=== PATIENT | female | born 2000 | race Two or more races ===

== ENCOUNTER 2019-04-26 14:00 | Inpatient (IN) | payer OTHER ==
[~2019-04-26] VITALS: Ht 154.9 cm; Wt 84.4 kg
[2019-05-01] MEDS ORDERED: PRENATABS RX T1 EACH PO (09:53)
== END 2019-05-04 11:48 | disposition home or self-care (01) | DRG 788 ==
LOC: LDR 05-01 09:49 → OB/GYN 05-02 00:20
PROVIDERS: ADMIT Specialist
PROC: 3E0P7VZ Introduction of Hormone into Female Reproductive, Via Natural or Artificial Opening (ICD-10-PCS; 2019-05-01)
PROC: 3E033VJ Introduction of Other Hormone into Peripheral Vein, Percutaneous Approach (ICD-10-PCS; 2019-05-01)
PROC: 4A1HXCZ Monitoring of Products of Conception, Cardiac Rate, External Approach (ICD-10-PCS; 2019-05-01)
PROC: 10D00Z1 Extraction of Products of Conception, Low, Open Approach (ICD-10-PCS; principal; 2019-05-01 21:00)
DX: O82 Encounter for cesarean delivery without indication (principal); O65.4 Obstructed labor due to fetopelvic disproportion, unspecified; Z3A.39 39 weeks gestation of pregnancy; Z37.0 Single live birth

== ENCOUNTER 2020-05-15 18:21 | Emergency (ER) | payer OTHER ==
[~2020-05-15] VITALS: Ht 162.6 cm; Wt 79.4 kg
[~2020-05-15 18:21] MED LIST: PRENATABS RX T1 EACH PO
== END 2020-05-15 22:08 | disposition home or self-care (01) ==
LOC: ER 18:21
DX: J32.0 Chronic maxillary sinusitis (principal); Z03.818 Encounter for observation for suspected exposure to other biological agents ruled out

== ENCOUNTER 2021-03-21 11:58 | Emergency (ER) | payer OTHER ==
[~2021-03-21] VITALS: Ht 154.9 cm; Wt 72.6 kg
== END 2021-03-21 17:23 ==
LOC: ER 11:58
DX: S93.401A Sprain of unspecified ligament of right ankle, initial encounter (principal); V43.62XA Car passenger injured in collision with other type car in traffic accident, initial encounter; Y92.410 Unspecified street and highway as the place of occurrence of the external cause; E11.9 Type 2 diabetes mellitus without complications; I10 Essential (primary) hypertension

== ENCOUNTER 2021-05-30 02:59 | Emergency (ER) | payer OTHER ==
[~2021-05-30] VITALS: Ht 167.6 cm; Wt 72.6 kg
[2021-05-30] MEDS ORDERED: PEPCID20 MG PO (06:32)
[2021-05-30] MEDS ORDERED: ONDANSETRON HCL4 MG PO (07:03)
== END 2021-05-30 07:14 | disposition home or self-care (01) ==
LOC: ER 02:59
DX: R11.2 Nausea with vomiting, unspecified (principal); F10.129 Alcohol abuse with intoxication, unspecified; Z88.1 Allergy status to other antibiotic agents

== ENCOUNTER 2022-02-04 16:15 | Emergency (ER) | payer OTHER ==
[~2022-02-04] VITALS: Ht 154.9 cm; Wt 61.2 kg
[~2022-02-04 16:15] MED LIST changes: +ONDANSETRON HCL4 MG PO; +PEPCID20 MG PO
== END 2022-02-04 19:40 | disposition home or self-care (01) ==
LOC: ER 16:15
DX: O20.9 Hemorrhage in early pregnancy, unspecified (principal); Z3A.00 Weeks of gestation of pregnancy not specified; Z88.1 Allergy status to other antibiotic agents

== ENCOUNTER 2022-02-06 14:25 | Emergency (ER) | payer OTHER ==
[~2022-02-06] VITALS: Ht 154.9 cm; Wt 61.2 kg
== END 2022-02-06 21:33 | disposition home or self-care (01) ==
LOC: ER 14:25
DX: O20.9 Hemorrhage in early pregnancy, unspecified (principal); Z3A.01 Less than 8 weeks gestation of pregnancy; Z88.1 Allergy status to other antibiotic agents

== ENCOUNTER → 2023-06-09 | Emergency (ER) | payer OTHER ==
[~2023-06-09] VITALS: Ht 157.5 cm; Wt 67.1 kg
== END | disposition left against medical advice (07) ==
LOC: ER 22:56
DX: Z53.21 Procedure and treatment not carried out due to patient leaving prior to being seen by health care provider (principal)

== ENCOUNTER 2023-11-09 00:12 | Emergency (ER) | payer OTHER ==
[~2023-11-09] VITALS: Ht 154.9 cm; Wt 68.5 kg
[2023-11-09] MEDS ORDERED: AZITHROMYCIN 500 MG TABLET PO STA (02:13)
[2023-11-09] MEDS ORDERED: ACETAMINOPHEN WITH CODEINE 1 UDTAB TABLET PO STA (02:13)
[2023-11-09] MEDS ORDERED: AZITHROMYCIN 500 MG TABLET PO ONE (02:16)
== END 2023-11-09 02:24 ==
LOC: ER 00:14
DX: O26.892 Other specified pregnancy related conditions, second trimester (principal); K02.9 Dental caries, unspecified; Z3A.14 14 weeks gestation of pregnancy; Z88.8 Allergy status to other drugs, medicaments and biological substances

== ENCOUNTER 2024-02-11 14:06 | Outpatient (CLI) | payer OTHER ==
[~2024-02-11] VITALS: Ht 157.5 cm; Wt 69.9 kg
[2024-02-11 13:35] VITALS: BP 113/70
[2024-02-11] MEDS ORDERED: RINGERS SOLUTION,LACTATED 1,000 ML IV SCH (14:15)
[2024-02-11] MEDS ORDERED: PRENATAL TABLE1 EAC1 PO (14:32)
[2024-02-11 14:33] LABS: URINE APPEARANCE Clear; URINE BILIRRUBIN Negative (NEGATIVE); URINE BLOOD Negative; URINE COLOR Yellow; URINE GLUCOSE Negative (NEGATIVE); URINE LEUKOCYTE Trace; URINE NITRATE Negative; URINE PROTEIN Trace (NEGATIVE)
[2024-02-11 14:35] LABS: HEMATOCRIT 30.5 % (36.0-45.00); HEMOGLOBIN 10.9 g/dL (12.0-15.00); MEAN CELL VOLUME 92.6 fL (80.00-100.00); MEAN CORPUSCULAR HEMOGLOBIN 33.2 pg (27.00-32.0); MEAN CORPUSCULAR HGB CONC 35.8 g/dl (32.0-36.0); PLATELET COUNT 169 K/uL (150-450); RED CELL DISTRIBUTION WIDTH 13.3 % (11.5-14.5)
[2024-02-11 14:36] LABS: URINE BACTERIA 2877.7 uL (0.0-1933); URINE EPITHELIAL CELLS 30.2 uL (0.0-38.8); URINE WBC 12.9 uL (0.0-23.2)
[2024-02-11 14:38] LABS: URINE KETONE 80 (NEGATIVE); URINE RBC 1.5 uL (0.0-20.8)
[2024-02-11 15:18] VITALS: BP 90/60
[2024-02-11] MEDS ORDERED: CLINDAMYCIN PHOSPHATE 900 MG in 0.9 % SODIUM CHLORIDE 100 ML IV SCH (17:00)
[2024-02-11 19:36] VITALS: BP 95/60
[2024-02-11 23:23] VITALS: BP 94/50
[2024-02-12 04:35] VITALS: BP 94/59
[2024-02-12 07:42] VITALS: BP 94/58
[2024-02-12 10:24] VITALS: BP 94/82
== END 2024-02-12 10:24 | disposition home or self-care (01) ==
LOC: OBS/DEL 14:06
PROVIDERS: Obstetrics & Gynecology; ATTEND Specialist
DX: O23.42 Unspecified infection of urinary tract in pregnancy, second trimester (principal); N39.0 Urinary tract infection, site not specified; Z3A.27 27 weeks gestation of pregnancy

== ENCOUNTER 2024-04-16 08:15 | Inpatient (IN) | payer OTHER ==
[~2024-04-16] VITALS: Ht 49.5 cm; Wt 3.2 kg
[~2024-04-16 08:15] MED LIST changes: +PRENATAL TABLE1 EAC1 PO
[2024-04-24 10:21] LABS: HEMATOCRIT 29.7 % (36.0-45.00); HEMOGLOBIN 10.1 g/dL (12.0-15.00); MEAN CELL VOLUME 88.6 fL (80.00-100.00); MEAN CORPUSCULAR HEMOGLOBIN 30.1 pg (27.00-32.0); PLATELET COUNT 157 K/uL (150-450); RED BLOOD COUNT 3.35 M/uL (4.00-6.00); RED CELL DISTRIBUTION WIDTH 14.1 % (11.5-14.5)
[2024-04-24 10:32] LABS: URINE APPEARANCE Cloudy; URINE BILIRRUBIN Negative (NEGATIVE); URINE BLOOD Trace; URINE COLOR Yellow; URINE GLUCOSE Negative (NEGATIVE); URINE KETONE Negative (NEGATIVE); URINE LEUKOCYTE Large; URINE NITRATE Negative; URINE PROTEIN Negative (NEGATIVE)
[2024-04-24 10:36] LABS: URINE WBC 546.7 uL (0.0-23.2)
[2024-04-24 10:48] LABS: INR < 0.93; PARTIAL THROMBOPLASTIN TIME 22.8 SECONDS (22.0-34.0)
[2024-04-24 11:13] LABS: ALBUMIN 2.4 gm/dL (3.4-5.0); BILIRUBIN TOTAL 0.59 mg/dL (0.3-1.2); CALCIUM 8.5 mg/dL (8.5-10.1); CREATININE SERUM 0.68 mg/dL (0.55-1.02); GFR 105.42; GLOBULINA 3.5 G/DL (2.4-3.5); POTASSIUM 3.57 mEq/L (3.5-5.1); TOTAL PROTEIN 5.9 gm/dL (6.4-8.2)
[2024-04-24 11:14] LABS: URINE BACTERIA > 9821.5 uL (0.0-1933); URINE CAST 0.14 uL (0.0-1.40); URINE RBC 1.6 uL (0.0-20.8)
[2024-04-27 06:23] VITALS: BP 106/73
[2024-04-27] MEDS ORDERED: CHLORHEXIDINE GLUCONATE 120 ML BOTTLE TOP ONE (07:24)
[2024-04-27] MEDS ORDERED: CLINDAMYCIN PHOSPHATE 150 MG/ML (900mg) ONE ×2 (07:24→10:31)
[2024-04-27] MEDS ORDERED: ERYTHROMYCIN BASE OPHT 1GM EACH TUBE OP ONE (07:31)
[2024-04-27] MEDS ORDERED: OXYTOCIN 10 UNITS/ML VIAL ONE (07:31)
[2024-04-27] MEDS ORDERED: MEPERIDINE HCL/PF 50 MG/ML VIAL IM PRN (08:45)
[2024-04-27] MEDS ORDERED: RINGERS SOLUTION,LACTATED 1,000 ML IV SCH (08:45)
[2024-04-27] MEDS ORDERED: PROMETHAZINE HCL 50 MG/ML AMPUL IM PRN (08:45)
[2024-04-27] MEDS ORDERED: CLINDAMYCIN PHOSPHATE 900 MG in 0.9 % SODIUM CHLORIDE 100 ML IV SCH (09:00)
[2024-04-27] MEDS ORDERED: MORPHINE SULFATE 4 MG/ML VIAL IV ONE ×2 (09:25→09:55)
[2024-04-27 11:47] VITALS: BP 123/73
[2024-04-27 16:00] VITALS: BP 113/64
[2024-04-28 01:12] VITALS: BP 105/62; O2SAT 100
[2024-04-28 03:10] LABS: HEMATOCRIT 24.1 % (36.0-45.00); HEMOGLOBIN 8.3 g/dL (12.0-15.00); MEAN CELL VOLUME 86.5 fL (80.00-100.00); MEAN CORPUSCULAR HEMOGLOBIN 29.7 pg (27.00-32.0); MEAN CORPUSCULAR HGB CONC 34.6 g/dl (32.0-36.0); PLATELET COUNT 144 K/uL (150-450); RED BLOOD COUNT 2.79 M/uL (4.00-6.00); RED CELL DISTRIBUTION WIDTH 14.4 % (11.5-14.5)
[2024-04-28] MEDS ORDERED: ACETAMINOPHEN 500 MG GEL..CAP PO PRN (08:15)
[2024-04-28] MEDS ORDERED: IBUprofen 800 MG TABLET PO PRN (08:15)
[2024-04-28 08:20] VITALS: BP 119/59
[2024-04-28] MEDS ORDERED: FERROUS SULFATE 325 MG TABLET.EC PO SCH (09:00)
[2024-04-28] MEDS ORDERED: SOD FERRIC GLUC COMPLX/SUCROSE 62.5 MG in 0.9 % SODIUM CHLORIDE 50 ML IV SCH (09:00)
[2024-04-28 13:45] VITALS: BP 113/76
[2024-04-28 16:00] VITALS: BP 135/61
[2024-04-29 00:12] VITALS: BP 106/60
[2024-04-29 08:00] VITALS: BP 111/70
[2024-04-29] MEDS ORDERED: IBUPROFEN800 MG PO (09:09)
== END 2024-04-29 12:49 | disposition home or self-care (01) | DRG 788 ==
LOC: O/R 04-27 05:30 → OB/GYN 04-27 09:15
PROVIDERS: ADMIT Specialist; ATTEND Specialist
PROC: 4A1HXCZ Monitoring of Products of Conception, Cardiac Rate, External Approach (ICD-10-PCS; 2024-04-27)
PROC: 10D00Z1 Extraction of Products of Conception, Low, Open Approach (ICD-10-PCS; principal; 2024-04-27 07:00)
DX: O34.211 Maternal care for low transverse scar from previous cesarean delivery (principal); Z3A.38 38 weeks gestation of pregnancy; Z37.0 Single live birth; Z20.822 Contact with and (suspected) exposure to COVID-19